=== PATIENT | male | born 1975 | race Caucasian/White ===

== ENCOUNTER 2019-03-05 11:54 | Emergency (ER) | payer OTHER ==
[~2019-03-05] VITALS: Ht 182.9 cm; Wt 99.8 kg
[2019-03-05] MEDS ORDERED: IBUPROFEN 800800 M1 PO (13:15)
[2019-03-05 13:34] VITALS: BP 150/90
== END 2019-03-05 13:36 | disposition home or self-care (01) ==
LOC: M.ERS 11:54
DX: M54.5 Low back pain (principal); F17.200 Nicotine dependence, unspecified, uncomplicated